=== PATIENT | male | born 1955 | race Hispanic/Latino ===

== ENCOUNTER 2017-11-22 11:40 | Emergency (ER) | payer SELFPAY ==
[2017-11-22] MEDS ORDERED: NA CHLORIDE 0.9% 1,000 ML ONE ×2 (12:00→12:59)
[2017-11-22 12:15] LABS: Absolute Lymphocytes (CBC) 1.9 K/uL (0.7-4.9); Absolute Monocytes 0.8 K/uL (0.1-1.3); Absolute Neutrophil 6.1 K/uL (1.8-8.0); Basophils % 2.6 % (0-1.3); Eosinophils % 3.1 % (0-4.4); Hematocrit 30.1 % (39.6-49.0); Lymphocytes % 20.5 % (15.3-44.8); MCH 31.2 pg (27.0-35.0); MCV 90.7 fL (80-100); MPV 6.9 fL (7.6-11.3); Monocytes % 8.3 % (3.3-12.3); RBC Red Blood Cell Count 3.32 M/uL (4.33-5.43)
[2017-11-22 12:37] LABS: BUN Blood Urea Nitrogen 20 mg/dL (7-18); Bicarbonate 22 mmol/L (21-32); Glucose Level 153 mg/dL (74-106); Potassium 4.8 mmol/L (3.5-5.1); Sodium Level 137 mmol/L (136-145); Troponin (Emerg Dept Use Only) < 0.02 ng/mL (0.0-0.045)
--- NOTE | 2017-11-22 13:18 | RAD REPORT ---
EXAM DESCRIPTION: Patt Single View11/22/2017 12:59 pm CLINICAL HISTORY: Hypotension/shortness of breath COMPARISON: 2016 FINDINGS: Right hemidiaphragm is mildly elevated The lungs appear clear of acute infiltrate. The heart is normal size
[2017-11-22 14:23] LABS: Urine Blood NEGATIVE (NEG); Urine Glucose NEGATIVE (NEG); Urine Protein 2+ (NEG); Urine pH 5.5 (5.0-7.0)
[2017-11-22 14:24] LABS: Urine Bacteria <20 /HPF (NONE SEEN); Urine Culture Reflex Order REFLEXED; Urine RBC NONE SEEN /HPF (NONE SEEN)
[2017-11-22 14:25] LABS: Calcium Oxalate Crystals- Ur FEW (NONE SEEN); Urine Mucus MOD /HPF (NONE SEEN)
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
[2017-11-22 15:03] VITALS: TEMP 98.5; O2SAT 100
[2017-11-22 15:05] VITALS: BP 122/61
--- NOTE | 2017-11-23 06:52 | EKG ---
Test Date: 2017-11-22 Test Time: 12:15:45 General Farm Manager: TANNER MEASUREMENT RESULTS: Intervals: Rate: 74 CT: 188 QRSD: 78 QT: 364 QTc: 404 Deary: P: 49 CT: 188 QRS: 67 T: 69 INTERPRETIVE STATEMENTS: Normal sinus rhythm Early repolarization Normal ECG Compared to ECG 07/05/2015 02:04:12 Early repolarization now present Electronically Signed On 11-23-17 06:49:22 CDT by Nestor Garcia
== END 2017-11-22 14:48 | disposition home or self-care (01) ==
LOC: ER 11:40
DX: E86.0 Dehydration (principal); Z79.82 Long term (current) use of aspirin
CPT/HCPCS: 36415; 71045; 80048; 81003; 81015; 83605; 84145; 84484; 85025; 87077; 87086; 87088; 87186; 87804; 93005; 99284; J7030